=== PATIENT | male | born 1975 | race Caucasian/White ===

== ENCOUNTER 2020-02-19 15:58 | Outpatient (REF) | payer MEDICARE, MEDICAID, SELFPAY | END 2020-02-19 15:59 | disposition home or self-care (01) | LOC: HO.LAB 15:58 | PROVIDERS: PCP Physician Assistant Medical; Visit Provider Internal Medicine | DX: Z20.828 Contact with and (suspected) exposure to other viral communicable diseases (principal) | CPT/HCPCS: C9803; U0003 ==

== ENCOUNTER 2021-12-05 10:31 | Emergency (ER) | payer MEDICARE, MEDICAID, SELFPAY ==
[2021-12-05 10:36] VITALS: BP 99/58; PULSE 76; RESP 18; TEMP 36.4; O2SAT 100; BMI 36.1
--- OUTSIDE RECORDS SUMMARY | 2021-12-05 11:07 | XMS_ITS ---
:1975 Author Name Walt Curtis Care Team Providers Name Role Phone Walt Curtis Unavailable Unavailable PROBLEMS Type Condition ICD9-CM Code [id number] Code Onset Condition SNO MED Code Dates Status Problem Tinea unguium B35.1 Active 659715 005 ALLERGIES Substance Reaction Event Type Date Status Seasonale Unknown Drug Allergy Oct, Active ENCOUNTERS Encounter Location Date Diagnosis [address] Oct, Tin ea unguium B35.1 ; Ceferino De La Vega [place] Pain in right t oe(s) [address] M79.674 and Pain in left toe(s) M79. [address] July, Tin ea unguium B35.1 ; Ceferino De La Vega [place] Pain in right t oe(s) [address] M79.674 and Pain in left toe(s) M79. [address] July, [place] [id number] Apr, Tin ea unguium B35.1 ; Ceferino De La Vega [place] Pain in right t oe(s) [address] M79.674 and Pain in left toe(s) M79. [address] Jan, Tin ea unguium B35.1 ; Ceferino De La Vega [place] Pain in right t oe(s) [address] M79.674 and Pain in left toe(s) M79. [address] Oct, Tin ea unguium B35.1 ; Ceferino De [place] Vega [place] Pain in right t oe(s) [address] M79.674 and Pain in left toe(s) M79. [address] July, Tin ea unguium B35.1 ; Ceferino De La Vega [place] Pain in right t oe(s) [address] M79.674 and Pain in left toe(s) M79. [address] Apr, Tin ea unguium B35.1 ; Ceferino De La Vega [place] Pain in right t oe(s) [address] M79.674 ; Pain i n left toe(s) M79.675 ; Pain in left foot M79 .672 ; Pain in left ank le and joints of left f oot M25.572 and [place] ux valgus (acquired ), left foot M20.12 IMMUNIZATIONS Vaccine Route Administration Date Status COVID-19 Moderna Vaccine Unknown Jan 14, 2021 Adminis tered Influenza Unknown Nov 05, 2020 Administered SOCIAL HISTORY Qualifiers Date Never Smoker REASON FOR REFERRAL FUNCTIONAL STATUS PLAN OF CARE Activity Details Future Appointment Provider Name:Damon Patten , 2022-01-12 09:00:00 AM, [address] [place] [address] [place], [id number], Future/Pending Procedure [id number] NAIL, 6 [place] MOR E Future/Pending Procedure [id number] NAIL, 6 OR MOR E Future/Pending Procedure [id number] NAIL, 6 OR MOR E Future/Pending Procedure [id number] NAIL, 6 OR MOR E Future/Pending Procedure [id number] NAIL, 6 OR MOR E Future/Pending Procedure [id number] NAIL, 6 OR MOR E Future/Pending Procedure [id number] NAIL, 6 OR MOR E VITAL SIGNS Height 5 ft 9 in in 2021-10-13 Weight 230 lbs 2021-10-13 BMI 33.96 kg/m2 2021-10-13 Temperature 98.1 degrees Fahrenheit 2020-07-11 MEDICATIONS Medication Instructions Dosage Frequency Start End Duration Statu s Date Date Famotidine 20 Orally Once a 1 tablet at 24h 30 day(s ) Active MG day bedtime as needed [place] Orally Once a 1 tablet at 24h 30 day(s) Acti ve Carbonate ER day bedtime 300 MG CeleXA 20 MG Orally Once a 1 tablet 24h 30 day(s) Ac tive day TEGretol-XR Active Thiothixene 10 Orally Twice a 1 capsule 12h 30 day(s ) Active MG day Claritin 10 MG Orally Once a 1 tablet 24h 30 day(s) Active day Prinzide Active PROCEDURES Procedure Date Ordered Result Body Site DEBRIDE NAIL, 6 OR MORE Apr 22, 2020 DEBRIDE NAIL, 6 OR MORE July 11, 2020 DEBRIDE NAIL, 6 OR MORE Oct 14, 2020 DEBRIDE NAIL, 6 OR MORE Jan 13, 2021 DEBRIDE NAIL, 6 OR MORE Apr 14, 2021 DEBRIDE NAIL, 6 OR MORE July 28, 2021 DEBRIDE NAIL, 6 OR MORE Oct 13, 2021 RESULTS No Results REASON FOR VISIT Insurance Providers [facility] Member Patient Patient Patient Patient Patient Subscriber Subscriber Subscriber Group Insurance Plan Plan Plan Plan ID Relationship Address Phone Name Date of ID Name Date of No Type Insurance Insurance Insurance Coverage to Subscriber Address Phone Name Dates Medicare National [id number] Medicare self Quang 13 [id number] [facility] [address] [facility] [address] [place] [id number] MEDICAL (GENERAL) HISTORY Type Description Date Medical History High blood pressure Medical History Head injury at 9 years old Surgical History No know Surgical history
--- OUTSIDE RECORDS SUMMARY | 2021-12-05 11:08 | XMS_ITS | Encounter Summary ---
:1975 Author Care Team Providers Name Role Phone Walt Curtis PA-C Primary Care Provider [phone] [facility] Referring Provider [phone] Services [employer] Salesperson [phone] [place] [facility] Psychologist [phone] Reason for Visit fall Patient states durring the night last had fallen on floor in bedroom. First bumped into dresser than floor. R hip injured. Assessment and Plan 1. Pain in right hip joint most likely from fall however mild ordered ibuprofen to help with inflammat ion pt has several complaints that he cannot walk, has a broken hip or cannot move however was seen mutiple times during the visit walking around normally with no complaints no need for x-rays at this time as pt is only having mild pain, ROM is intact and pain was improving with tylenol. will consider only if there are no improvements. 2. Low back pain lower back most likely from fall howeve r mild ordered ibuprofen to help with inflammat ion pt has several complaints that he cannot walk or move however was seen mutiple times during the visit walking around normally with no complaints no need for x-rays at this time as pt is only having mild pain, ROM is intact and pain was improving with tylenol. will consider only if there are no improvements. ? low back pain: exercises ? ibuprofen 200 mg tablet 3. Recurrent falls hx of falls pt was [place] help with fall prevention however pt did not go. As per caregiver he went twice and then stopped after discussion with patient, agreed to try physical therapy again counselled on safe environment to help t he preventions of falls ? preventing falls: care instructions ? fall prevention education ? physical therapist referral - pt has a history of frequent falls also has balance problems hx of spastic hemiplagia Discussion Note: None recorded. Plan of Care Reminders Provider Appointments Follow up 30Min 12/09/2021 Walt Curtis PA-C 2:30PM ? Awv30 02/22/2022 Walt Curtis PA-C 11:00AM Lab None recorded. ? ? Referral Physical Therapist 10/22/2021 Falls Preve ntion Referral Initiative - [facility] Procedures None recorded. ? ? Surgeries None recorded. ? ? Imaging None recorded. ? ? Medications Name Start Date ? ? amoxicillin 500 mg capsule ? carbamazepine 200 mg tablet ? TAKE 1 TABLET BY MOUTH EVERY MORNING, 2 TABS AT 4PM, AND 2 TABLETS AT NIGHT citalopram 20 mg tablet ? Take 1 tablet every day by oral route for 90 days. famotidine 20 mg tablet ? TAKE 1 TABLET BY MOUTH TWICE DAILY NEEDED ibuprofen 200 mg tablet ? Take 1 tablet every 6 hours by oral route as needed f or 30 days. lisinopril 20 mg tablet ? TAKE 1/2 TABLET BY MOUTH EVERY DAY lithium carbonate 300 mg capsule ? Take 1 capsule twice a day by oral route for 90 days. loratadine 10 mg tablet ? TAKE 1 TABLET BY MOUTH EVERY DAY oxybutynin chloride 5 mg tablet ? thiothixene 10 mg capsule ? Take 1 capsule every day by oral route for 90 days. Tylenol 325 mg tablet ? Take 2 tablets every 6 hours by oral route as needed. Medications Administered None recorded. Vitals Height Weight BMI Blood Pressure 5 ft 9.25 in 241 lbs 16 oz 35.5 kg/m2 113/74 mm[Hg] Results Lab Results None recorded. Allergies Code Code System Name Reaction Severity Onset NKDA ? ? ? Problems Name Status Onset Date Source ? Obesity Active 01/15/2019 ? Onychomycosis of Toenails Active 02/18/2020 ? Major Depressive Disorder Active 02/18/2020 ? Spastic Hemiplegia Active 02/18/2020 ? Nocturnal Enuresis Active 02/19/2021 ? Hyperlipidemia Active ? ? Hypo-osmolality and or Hyponatremia Active ? ? Intellectual Functioning Disability Active ? ? Spastic Hemiplegia Active ? ? Essential Hypertension Active ? ? Gastroesophageal Reflux Disease Active ? ? Seizure Active ? ? Epistaxis Active ? ? Intracranial Injury Active ? ? Traumatic Brain Injury Active ? ? 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 ? Motion Sickness Active ? ? Procedures Date Name Performed by ? 01/05/2019 Esophagogastroduodenoscopy Information n ot available Vaccine List Vaccine Type COVID-19, mRNA, LNP-S, PF, 100 mcg/0.5 m L dose (Moderna) 06/17/2020 07/15/2020 01/14/2021 influenza, injectable, quadrivalent, pre servative free 11/22/2017?0.5 ML 12/13/2018?0.5 ML 12/18/2019?0.5 ML 01/20/2021 influenza, seasonal, injectable 02/06/2007 02/12/2008 02/19/2010 02/22/2011 12/10/2013 12/18/2014 12/05/2016?0.5 mL 01/21/2021 influenza, seasonal, injectable, preserv ative free 12/18/2014 01/22/2016 12/14/2016 influenza, seasonal, intradermal, preser vative free 02/21/2012 12/04/2012 Td (adult), adsorbed 08/19/2000 Tdap 02/19/2010 Social History Tobacco Smoking Status Never Smoker What type of diet are you REGULAR following? Are you able to walk? YESWOREST How many children do you have? 0 Are you able to care for Y yourself? Are you currently employed? N Have you served in the N [employer]? How much tobacco do you chew? none What was the date of your most 02/19/2021 recent tobacco screening? Do you use sunscreen routinely? Y Do you have an advanced N directive? Do you or have you ever used Never used electronic e-cigarettes or vape? cigarettes Do you use any illicit or N recreational drugs? Is blood transfusion acceptable Y in an emergency? What is your exercise level? Occasional Notes: [place] How many years have you smoked 0 tobacco? How often do you need to have Always someone help you when you read instructions, pamphlets, or other written material from your doctor or pharmacy? What is your level of alcohol None consumption? Live alone or with others? with others Notes: Home care provider (Xiomy Lawrence) and her (Nithin kwon Howard) Which illicit or recreational none drugs have you used? Are you passively exposed to N smoke? Do you or have you ever used N any other forms of tobacco or nicotine? What is your level of caffeine Occasional Notes: 1 cup of coffee consumption? daily Do you take precautions to Notes: does not drive prevent distracted driving? Smoke alarm in home Y Seat belts used routinely Y At what age did you start 0 smoking tobacco? What is your occupation? disabled Family History Relation Problem Onset Age of Age Notes Mother Well adult (No Information) N/A (No Notes) Father Well adult (No Information) N/A (No Notes) Sister Diabetes mellitus (No Information) N/A (No No sabi) Functional Status Unknown. Past Encounters 10/22/2021 Pain in Right Hip Joint; Low Back Pain; Recurrent Falls Christi Sinha MD: [id number] [address], Ph. History of Present Illness ? Back Pain Reported By: Patient HPI: Location: pain is not radiat ing. Quality: ; aching. Severity: same. Duration: intermittent. Onse t/Timing: first episode, 3days ago. Context: trauma. Alleviating Factors: rest. Aggravating Factors: movement/positioning. Associ ated Symptoms: no fever, no weak limbs, no numbness of the legs/feet, n o tingling, no incontinence, no shortness of breath ? Hip(s) Reported By: Patient HPI: Location: right. Quality: ac cliff. Severity: mild. Duration: 3 days. Timing: occasional. Context: fall. Alleviating Factors: rest, OTC medication. Aggravating Fact ors: standing, walking. Associated Symptoms: no weakness, no numbness, no tingling, no swelling, no redness, no warmth, no ecchymosis, no ca tching/locking, no popping/clicking, no buckling, no grinding, no in stability, no radiation down leg, no drainage, no fever, no chill s, no weight loss, no change in bowel/bladder habits. Previo us Surgery: none. Prior Imaging: none. Previous Injections: none. P revious PT: did not help. Work Related: no. Working: no Note: <div>Pt is a poor historian. Hx obtained mostly by patient because care- taker did not witnessthe fall.</div><div>
</div><div>Quang Martinez is a 46 year old M who presented to the clinic after a fall. The fall occurred on Friday 10/20. As per patient after the fall he had been having right sided hip pain and lower back pain. Pt was in his bedroom coming back fromthe bathroom when he tripped and fell over his feet. Pt stated he fell on his right side. Denies yazan ing his head or LOC. The fall was not witnessed. Pt did not tell his caregivers what had happened until the next day and did not got to his day program due to the pain. Pt caregiver reports no trouble walking. Pt was given two tablets of tylenol on Tuesday which helped with the pain.</div><div>
</div><div>Last documented fall was in 07/2017 sent to PT for fall prevention for which patient did not complete.</div> Review of Systems ? Comprehensive General Adult ROS Reported By: Patient Constitutional: Constitutional: no fever, no night sweats, no significant weight gain, no significant weight loss, no exercise intolerance Eyes: Eyes: no vision change ENMT: Nose: no nose/sinus problems . Mouth/Throat: no teeth problems Cardiovascular: Cardiovascular: no chest layne n, no shortness of breath when walking, no palpitations, no edema Respiratory: Respiratory: no cough, no wh eezing, no shortness of breath Gastrointestinal: Gastrointestinal: no abdomin al pain, normal appetite Musculoskeletal: Musculoskeletal: muscle ache s, arthralgias/joint pain, back pain Integumentary: Skin: no rashes, no lacerati on Neurologic: Neurologic: no loss of consc iousness, no numbness, no dizziness, no headaches Physical Exam ? General Adult Exam, Geriatri cs Exam Reported By: Patient Telecommunication Systems Designer: Telecommunication Systems Designer: present Constitutional: General Appearance: obese; R UE contracted at baseline. Level of Distress: NAD. Ambulation: a mbulating normally Psychiatric: Insight: poor insight. Menta l Status: active and alert Head: Head: atraumatic Eyes: Lids and Conjunctivae: no di scharge. Pupils: PERRLA. Corneas: grossly intact. EOM: EOMI. L ens: clear. Sclerae: non-icteric Lungs: Respiratory effort: no dyspn ea. Auscultation: breath sounds normal, good air movement, no wheezi ng, no rales/crackles, no rhonchi Cardiovascular: Apical Impulse: not displace d. Heart Auscultation: RRR, normal S1, normal S2, no murmurs, no ru bs, no gallops Abdomen: Bowel Sounds: normal Musculoskeletal:: Extremities: no edema Notes: <div>Back exam- exam was galeana ited because pt stated he was in pain</div><div>Normal appear ance
Tenderness on the lower spine at level L4
ROM-Forward F lexion 90, Extension 30, lateral flexion right 30 left 30, la teral rotation right 30 left 30
Motor- Hip flexion 5/5 , abduction 5/5, adduction 5/5, knee extension 5/5, knee flexion 5/5, ankle dorsiflexion 5/5, plantarflexion 5/5</div><div >
</div><div>Right Hip exam
Gait: normal
Tenderness: none<b r>Range of Motion:not assessed because patient did not have good ba bhumi and complained of pain
Muscle Strength
Abduction:5/5
Adduction:5/5
Flexion:5/5
Specia l tests: Log Roll test {nega tive}, Pendulum test {NEGATIVE}</div><div>Neurova scular: intact</div>
--- OUTSIDE RECORDS SUMMARY | 2021-12-05 11:08 | XMS_ITS ---
:1975 Author Care Team Providers Name Role Phone NATALIIA ASHBY FOR TRAUMATIC BRAIN INJURY Referring Provider [phone] SERVICES TYRON CARTER Back [employer] [phone] WALT NASCIMENTO PA-C Primary Care Provider [phone] [facility] Psychologist [phone] Allergies Code Code System Name Reaction Severity Status Onset No Known Allergies ? ? Deactivated 03/20/2013 NKDA ? Medications Name Status Start Date Stop Date ? ? acetaminophen 300 mg-codeine 30 mg tablet Completed ? 02/19/2021 amoxicillin 500 mg capsule Active ? Not a vailable aspirin 325 mg tablet,delayed release Completed ? 01/11/2018 Take 1 tablet every day by oral route as needed. atenolol 100 mg tablet Completed 02/17/2009 9 QD Botox 100 unit injection Completed ? 018 carbamazepine 200 mg tabs Completed ? 2019 carbamazepine 200 mg tablet Active ? Not available TAKE 1 TABLET BY MOUTH EVERY MORNING, 2 TABS AT 4PM, AND 2 TABL ETS AT NIGHT citalopram 10 mg tablet Completed ? 02/18/20 20 citalopram 20 mg tablet Active ? Not avai lable Take 1 tablet every day by oral route for 90 days. citalopram hydrobromide 10 mg tabs Completed ? 02/18/2020 citalopram hydrobromide 20 mg tabs Completed ? 02/18/2020 famotidine 20 mg tablet Active ? Not avai lable TAKE 1 TABLET BY MOUTH TWICE DAILY NEEDED Gentak 0.3 % (3 mg/gram) eye ointment Completed ? 07/11/2017 APPLY A SMALL AMOUNT (1/2 INCH) TO THE LOWER LID OF THE AFFECTED EYE(S) BY OPHTHALMIC ROUTE 2 TIMES PER DAY ibuprofen 200 mg tablet Active ? Not avai lable Take 1 tablet every 6 hours by oral route as needed for 30 days . lisinopril 20 mg tabs Completed ? 02/18/2020 lisinopril 20 mg tablet Active ? Not avai lable TAKE 1/2 TABLET BY MOUTH EVERY DAY lithium carbonate 300 mg caps Completed ? lithium carbonate 150 mg capsule Completed ? 09/13/2018 lithium carbonate 300 mg capsule Active ? Not available Take 1 capsule twice a day by oral route for 90 days. loratadine 10 mg tablet Active ? Not avai lable TAKE 1 TABLET BY MOUTH EVERY DAY lorazepam 1 mg tablet Completed ? 01/15/2019 Take 1 tablet as needed by oral route as needed for 5 days. omeprazole 20 mg cpdr Completed ? 02/18/2020 omeprazole 20 mg capsule,delayed release Completed ? 10/22/2021 oxybutynin chloride 5 mg tablet Active ? Not available polymyxin B sulfate 10,000 unit-trimethoprim 1 Completed ? 05/16/2018 mg/mL eye drops ranitidine 150 mg tablet Completed ? 020 ranitidine hydrochloride 150 mg tabs Completed ? 02/18/2020 Tamiflu 75 mg capsule Completed ? 01/04/2017 Take 1 capsule twice a day by oral route for 5 days. Tegretol XR 400 mg tablet,extended release Completed ? 02/18/2020 Take 1 tablet every 12 hours by oral route in the evening. thiothixene 10 mg caps Completed ? 0 thiothixene 5 mg caps Completed ? 02/18/2020 thiothixene 10 mg capsule Active ? Not av ailable Take 1 capsule every day by oral route for 90 days. thiothixene 5 mg capsule Completed ? 020 Transderm-Scop 1 mg over 3 days transdermal Completed ? 01/15/2019 patch Tylenol 325 mg tablet Active ? Not availa ble Take 2 tablets every 6 hours by oral route as needed. Problems Name Status Onset Date Source ? Administration of Bacterial and Viral Vaccine Unknown ? Administration of Bacterial and Viral Vaccine Unknown ? Onychomycosis Due to Dermatophyte Unknown 02/21/2012 ? Onychomycosis Due to Dermatophyte Unknown 02/21/2012 ? Joint Pain in Ankle and Foot Unknown 02/21/2012 ? Joint Pain in Ankle and Foot Unknown 02/21/2012 ? Closed Fracture of Ankle Unknown 02/21/2012 ? Closed Fracture of Ankle Unknown 02/21/2012 ? Closed Fracture of Foot Unknown 02/21/2012 ? Closed Fracture of Foot Unknown 02/21/2012 ? Traumatic or Non-traumatic Injury Unknown 02/21/2012 ? Traumatic or Non-traumatic Injury Unknown 02/21/2012 ? Influenza Vaccine Needed Unknown 02/21/2012 ? Influenza Vaccine Needed Unknown 02/21/2012 ? Follow-up Encounter Unknown 02/21/2012 ? Follow-up Encounter Unknown 02/21/2012 ? Sprain of Spinal Ligament Unknown 03/20/2013 ? Sprain of Spinal Ligament Unknown 03/20/2013 ? Patient Status Finding Unknown 03/20/2013 ? Patient Status Finding Unknown 03/20/2013 ? Obesity Unknown 03/27/2013 ? Obesity Unknown 03/27/2013 ? Adult Health Examination Unknown 03/27/2013 ? Adult Health Examination Unknown 03/27/2013 ? Obesity Active 01/15/2019 ? Onychomycosis of Toenails Active 02/18/2020 ? Major Depressive Disorder Active 02/18/2020 ? Spastic Hemiplegia Active 02/18/2020 ? Nocturnal Enuresis Active 02/19/2021 ? Hyperlipidemia Active ? ? Hypo-osmolality and or Hyponatremia Active ? ? Body Mass Index 30+ - Obesity Unknown ? ? Intellectual Functioning Disability Active ? ? Spastic Hemiplegia Active ? ? Essential Hypertension Active ? ? Allergic Rhinitis Unknown ? ? Gastroesophageal Reflux Disease Active ? ? Seizure Active ? ? Epistaxis Active ? ? Electrocardiogram Abnormal Unknown ? ? Intracranial Injury Active ? ? Traumatic Brain Injury Active ? ? 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 ? Motion Sickness Active ? ? Laboratory Procedure Performed Unknown ? ? Knee Pain Unknown ? ? Procedures Date Name Performed by ? 01/05/2019 Esophagogastroduodenoscopy Information n ot available Results Lab Results Date Name Specimen Result Interpretation Description Value Range Status Address ? 05/26/2021 Cbc ? Wbc 7.1 (4.0-11.0) [facility] K/mm3 K/mm3 Reference Laboratori es: [address], [place] ? ? Low Rbc 4.48 (4.70-6.10) [facility] M/mm3 M/mm3 Reference Laboratori es: [address], [place] ? ? ? Hgb 13.8 (13.7-17.1) [facility] gm/dL gm/dL Reference Laboratori es: [address], [place] ? ? ? Hct 41.9 % (40.5-50.0) [facility] % Reference Laboratori es: [address], [place] ? ? ? Mcv 93.5 fL (80.0-94.0) [facility] fL Reference Laboratori es: [address], [place] ? ? ? Mch 30.8 pg (27.0-34.0) Final [facility] pg Reference Laboratori es: [address], [place] ? ? Low Mchc 32.9 (33.0-37.0) [facility] g/dL g/dL Reference Laboratori es: [address], [place] ? ? ? Plt 253 (150-460) [facility] K/mm3 K/mm3 Reference Laboratori es: [address], [place] ? ? ? RDW-SD 40.7 fL (<47.0) fL Final [facility] Reference Laboratori es: [address], [place] ? ? Low Mpv 9.3 fL (9.4-12.4) Final [facility] fL Reference Laboratori es: [address], [place] ? ? ? Automated 0.0 ? [facility] NRBC #/100 Reference WBC's Laboratori es: [address], [place] ? ? ? Abs. NRBC 0.0 ? [facility] K/mm3 Reference Laboratori es: [address], [place] 05/26/2021 HbA1C ? Hemoglobin 5.1 % (4.0-5.6) % Fin al [facility] (Hemoglobin a1C Refer ence a1C), Blood Labor atories: [address], [place] 05/26/2021 CMP, Serum ? Glucose 96 (70-99) [facility] or Plasma mg/dL mg/dL Referen ce Laboratori es: [address], [place] ? ? ? Bun 18 (6-20) Final [facility] mg/dL mg/dL Reference Laboratori es: [address], [place] ? ? High Creatinine 1.4 (0.7-1.2) [facility] mg/dL mg/dL Reference Laboratori es: [address], [place] ? ? ? Sodium 134 (133-145) [facility] mmol/L mmol/L Reference Laboratori es: [address], [place] ? ? ? Potassium 5.0 (3.6-5.2) [facility] mmol/L mmol/L Reference Laboratori es: [address], [place] ? ? ? Chloride 98 (98-107) [facility] mmol/L mmol/L Reference Laboratori es: [address], [place] ? ? ? Bicarbonate 26 (22-29) [facility] mmol/L mmol/L Reference Laboratori es: [address], [place] ? ? ? Anion Gap 10 (4-17) [facility] Reference [facility]: [address], [place] ? ? High Albumin 5.0 (3.4-4.8) [facility] gm/dL gm/dL Reference Laboratori es: [address], [place] ? ? ? Calcium 10.1 (8.6-10.5) Final [facility] mg/dL mg/dL Reference Laboratori es: [address], [place] ? ? ? Bilirubin,to 0.3 (0-1.2) [facility] [place] mg/dL mg/dL Reference Laboratori es: [address], [place] ? ? ? Total 6.9 (6.2-8.2) [facility] Protein gm/dL gm/dL Reference Laboratori es: [address], [place] ? ? ? Ag Ratio 2.6 ? Final [facility] Reference Laborator[facility]: [address], [place] ? ? ? Ast 21 U/L (0-40) U/L [facility] Reference Laborator[facility]: [address], [place] ? ? ? Alk Phos 85 U/L (40-129) [facility] U/L Reference Laboratori es: [address], [place] ? ? ? Alt 23 U/L (0-41) U/L [facility] Reference Laborator[facility]: [address], [place] ? ? ? Estimated 61 ? Final [facility] GFR mL/min/ Reference Creatinine 1.73 M2 Labor atories: [address], [place] 05/26/2021 Lipid Panel, High Cholesterol, 259 (<200) Final [facility] Serum Total mg/dL mg/dL Reference Laboratori es: [address], [place] ? ? High Triglyceride 209 (<150) Final [facility] mg/dL mg/dL Reference Laboratori es: [address], [place] ? ? ? HDL Chol 47 (>39) mg/dL [facility] mg/dL Reference Laboratori es: [address], [place] ? ? High LDL 170 (0-130) Final [facility] Cholesterol, mg/dL mg/dL Refe rence Calculated Labora tories: [address], [place] ? ? High Non HDL 212 (<160) Final [facility] Cholesterol mg/dL mg/dL Refer ence (Calc) Laboratori es: [address], [place] 05/26/2021 Hepatitis C Normal Anti-hepatit ? (neg) F inal [facility] Virus Ab, is C Referen ce Serum Laboratori es: [address], [place] 08/20/2020 BMP, Serum High Glucose 117 (70-99) Final [facility] or Plasma mg/dL mg/dL Referen ce Laboratori es: [address], [place] ? ? ? Bun 17 (6-20) Final [facility] mg/dL mg/dL Reference Laboratori es: [address], [place] ? ? ? Creatinine 1.2 (0.7-1.2) [facility] mg/dL mg/dL Reference Laboratori es: [address], [place] ? ? ? Sodium 137 (133-145) Final [facility] mmol/L mmol/L Reference Laboratori es: [address], [place] ? ? ? Potassium 4.5 (3.6-5.2) Final [facility] mmol/L mmol/L Reference Laboratori es: [address], [place] ? ? ? Chloride 101 (98-107) Final [facility] mmol/L mmol/L Reference Laboratori es: [address], [place] ? ? ? Bicarbonate 24 (22-29) Final [facility] mmol/L mmol/L Reference Laboratori es: [address], [place] ? ? ? Anion Gap 12 (4-17) Final [facility] Reference Laboratori [facility]: [address], [place] ? ? ? Calcium 10.0 (8.6-10.5) Final [facility] mg/dL mg/dL Reference Laboratori es: [address], [place] ? ? ? Est GFR Non 70 ? Final [facility] mL/min/ Referenc e [place] 1.73 M2 Laborat ories: [address], [place] ? ? ? Est GFR 81 ? Final [facility] mL/min/ Referenc e [place] 1.73 M2 Laborat ories: [address], [place] 05/12/2020 CBC W/ Auto ? Wbc 7.6 (4.0-11.0) Cara l [facility] Diff K/mm3 K/mm3 Reference Laboratori es: [address], [place] ? ? ? Rbc 4.82 (4.70-6.10) [facility] M/mm3 M/mm3 Reference Laboratori es: [address], [place] ? ? ? Hgb 14.6 (13.7-17.1) [facility] gm/dL gm/dL Reference Laboratori es: [address], [place] ? ? ? Hct 44.3 % (40.5-50.0) [facility] % Reference Laboratori es: [address], [place] ? ? ? Mcv 91.9 fL (80.0-94.0) Final [place] fL Reference Laboratori es: [address], [place] ? ? ? Mch 30.3 pg (27.0-34.0) Final [place] pg Reference Laboratori es: [address], [place] ? ? ? Mchc 33.0 (33.0-37.0) [facility] g/dL g/dL Reference Laboratori es: [address], [place] ? ? ? Plt 230 (150-460) Final [facility] K/mm3 K/mm3 Reference Laboratori es: [address], [place] ? ? ? RDW-SD 40.0 fL (<47.0) fL Final [place] Reference Laboratori es: [address], [place] ? ? ? Mpv 9.6 fL (9.4-12.4) Final [facility] fL Reference Laboratori es: [address], [place] ? ? ? Automated 0.0 ? Final [facility] NRBC #/100 Reference WBC's Laboratori es: [address], [place] ? ? ? Abs. NRBC 0.0 ? Final [facility] K/mm3 Reference Laboratori es: [address], [place] 05/12/2020 CMP, Serum ? Glucose 96 (70-99) Final [facility] or Plasma mg/dL mg/dL Referen ce Laboratori es: [address], [place] ? ? ? Bun 20 (6-20) Final [facility] mg/dL mg/dL Reference Laboratori es: [address], [place] ? ? High Creatinine 1.4 (0.7-1.2) [facility] mg/dL mg/dL Reference Laboratori es: [address], [place] ? ? ? Sodium 137 (133-145) Final [facility] mmol/L mmol/L Reference Laboratori es: [address], [place] ? ? ? Potassium 5.2 (3.6-5.2) Final [facility] mmol/L mmol/L Reference Laboratori es: [address], [place] ? ? ? Chloride 101 (98-107) Final [facility] mmol/L mmol/L Reference Laboratori es: [address], [place] ? ? ? Bicarbonate 27 (22-29) Final [facility] mmol/L mmol/L Reference Laboratori es: [address], [place] ? ? ? Anion Gap 9 (4-17) Final [facility] Reference Laboratori [facility]: [address], [place] ? ? High Albumin 5.0 (3.4-4.8) Final [facility] gm/dL gm/dL Reference Laboratori es: [address], [place] ? ? ? Calcium 10.4 (8.6-10.5) Final [facility] mg/dL mg/dL Reference Laboratori es: [address], [place] ? ? ? Bilirubin,to 0.3 (0-1.2) Final [facility] [place] mg/dL mg/dL Reference Laboratori es: [address], [place] ? ? ? Total 7.1 (6.2-8.2) Final [facility] Protein gm/dL gm/dL Reference Laboratori es: [address], [place] ? ? ? Ag Ratio 2.4 ? Final [facility] Reference Laboratori [facility]: [address], [place] ? ? ? Ast 18 U/L (0-40) U/L [facility] Reference Laboratori [facility]: [address], [place] ? ? ? Alk Phos 96 U/L (40-129) Final [facility] U/L Reference Laboratori es: [address], [place] ? ? ? Alt 21 U/L (0-41) U/L Final [facility] Reference Laboratori es: [address], [place] ? ? ? Est GFR Non 61 ? Final [facility] mL/min/ Referenc e [place] 1.73 M2 Laborat ories: [address], [place] ? ? ? Est GFR 71 ? Final [facility] mL/min/ Referenc e [place] 1.73 M2 Laborat ories: [address], [place] 05/12/2020 Lipid Panel, High Cholesterol, 247 (<200) Final [facility] Serum Total mg/dL mg/dL Reference Laboratori es: [address], [place] ? ? High Triglyceride 184 (<150) Final [facility] mg/dL mg/dL Reference Laboratori es: [address], [place] ? ? ? HDL Chol 50 (>39) mg/dL [facility] mg/dL Reference Laboratori es: [address], [place] ? ? High LDL 160 (0-130) Final [facility] Cholesterol, mg/dL mg/dL Refe rence Calculated Labora tories: [address], [place] ? ? High Non HDL 197 (<160) Final [facility] Cholesterol mg/dL mg/dL Refer ence (Calc) Laboratori es: [address], [place] 05/12/2020 Vitamin D, ? 25OH Vitamin 23.8 (20-50) F inal [facility] 25-Hydroxy, D NG/mL NG/mL Refer ence Total, Serum Labo ratories: [address], [place] 02/18/2020 Cerumen ? No ? ? ? In-Of fice Removal observation Orde r: (PROC) recorded. Interna l Use Only DO No t Attach Compendium DO Not Attach Compendium , Do Not Delete/dina ge 05/08/2019 HbA1C ? Hemoglobin 4.9 % (4.0-5.6) % Fin al [facility] (Hemoglobin a1C Refer ence a1C), Blood Labor atories: [address], [place] 05/08/2019 CMP, Serum ? Glucose 89 (70-99) Final [facility] or Plasma mg/dL mg/dL Referen ce Laboratori es: [address], [place] ? ? ? Bun 13 (6-20) Final [facility] mg/dL mg/dL Reference Laboratori es: [address], [place] ? ? ? Creatinine 1.2 (0.7-1.2) Final [facility] mg/dL mg/dL Reference Laboratori es: [address], [place] ? ? ? Sodium 138 (133-145) Final [facility] mmol/L mmol/L Reference Laboratori es: [address], [place] ? ? ? Potassium 4.5 (3.6-5.2) Final [facility] mmol/L mmol/L Reference Laboratori es: [address], [place] ? ? ? Chloride 102 (98-107) Final [facility] mmol/L mmol/L Reference Laboratori es: [address], [place] ? ? ? Bicarbonate 26 (22-29) Final [facility] mmol/L mmol/L Reference Laboratori es: [address], [place] ? ? ? Anion Gap 10 (4-17) Final [facility] Reference Laboratori es: [address], [place] ? ? ? Albumin 4.8 (3.4-4.8) Final [facility] gm/dL gm/dL Reference Laboratori es: [address], [place] ? ? ? Calcium 10.2 (8.6-10.5) Final [facility] [facility] mg/dL mg/dL Reference Laboratori es: [address], [place] ? ? ? Bilirubin,to 0.3 (0-1.2) Final [facility] [place] mg/dL mg/dL Reference Laboratori es: [address], [place] ? ? ? Total 6.9 (6.2-8.2) Final [facility] Protein gm/dL gm/dL Reference Laboratori es: [address], [place] ? ? ? Ag Ratio 2.3 ? Final [facility] Reference Laboratori [facility]: [address], [place] ? ? ? Ast 20 U/L (0-38) U/L Final [facility] Reference Laboratori es: [address], [place] ? ? ? Alk Phos 91 U/L (40-129) Final [facility] U/L Reference Laboratori es: [address], [place] ? ? ? Alt 24 U/L (0-41) U/L Final [facility] Reference Laboratori es: [address], [place] ? ? ? Est GFR Non 74 ? Final [facility] mL/min/ Referenc e [place] 1.73 M2 Laborat ories: [address], [place] ? ? ? Est GFR 86 ? Final [facility] mL/min/ Referenc e [place] 1.73 M2 Laborat ories: [address], [place] 05/08/2019 Lipid Panel, High Cholesterol, 221 (<200) Final [facility] Serum Total mg/dL mg/dL Reference Laboratori es: [address], [place] ? ? High Triglyceride 184 (<150) Final [facility] mg/dL mg/dL Reference Laboratori es: [address], [place] ? ? ? HDL Chol 50 (>39) mg/dL [facility] mg/dL Reference Laboratori es: [address], [place] ? ? High LDL 134 (0-130) Final [facility] Cholesterol, mg/dL mg/dL Refe rence Calculated Labora tories: [address], [place] ? ? High Non HDL 171 (<160) Final [facility] Cholesterol mg/dL mg/dL Refer ence (Calc) Laboratori es: [address], [place] 07/26/2018 BMP, Serum ? Glucose 98 (70-99) Final [facility] or Plasma mg/dL mg/dL Referen ce Laboratori es: [address], [place] ? ? ? Bun 16 (6-20) Final [facility] mg/dL mg/dL Reference Laboratori es: [address], [place] ? ? ? Creatinine 1.1 (0.7-1.2) Final [facility] mg/dL mg/dL Reference Laboratori es: [address], [place] ? ? ? Sodium 141 (133-145) Final [facility] mmol/L mmol/L Reference Laboratori es: [address], [place] ? ? ? Potassium 4.9 (3.6-5.2) Final [facility] mmol/L mmol/L Reference Laboratori es: [address], [place] ? ? ? Chloride 104 (98-107) Final [facility] mmol/L mmol/L Reference Laboratori es: [address], [place] ? ? ? Bicarbonate 27 (22-29) Final [facility] mmol/L mmol/L Reference Laboratori es: [address], [place] ? ? ? Anion Gap 10 (4-17) Final [facility] Reference Laboratori es: [address], [place] ? ? ? Calcium 10.4 (8.6-10.5) Final [facility] mg/dL mg/dL Reference Laboratori es: [address], [place] ? ? ? Est GFR Non 82 ? Final [facility] mL/min/ Referenc e [place] 1.73 M2 Laborat ories: [address], [place] ? ? ? Est GFR 95 ? Final [facility] mL/min/ Referenc e [place] 1.73 M2 Laborat ories: [address], [place] 07/26/2018 HbA1C ? Hemoglobin 4.9 % (4-6) % Final [facility] (Hemoglobin a1C Refer ence a1C), Blood Labor atories: [address], [place] 01/11/2018 CMP, Serum High Glucose 165 (70-99) Final [facility] or Plasma mg/dL mg/dL Referen ce Laboratori es: [address], [place] ? ? ? Bun 14 (6-20) Final [facility] mg/dL mg/dL Reference Laboratori es: [address], [place] ? ? ? Creatinine 1.0 (0.7-1.2) Final [facility] mg/dL mg/dL Reference Laboratori es: [address], [place] ? ? ? Sodium 134 (133-145) Final [facility] mmol/L mmol/L Reference Laboratori es: [address], [place] ? ? ? Potassium 4.2 (3.6-5.2) Final [facility] mmol/L mmol/L Reference Laboratori es: [address], [place] ? ? Low Chloride 97 (98-107) Final [facility] mmol/L mmol/L Reference Laboratori es: [address], [place] ? ? ? Bicarbonate 22 (22-29) Final [facility] mmol/L mmol/L Reference Laboratori es: [address], [place] ? ? ? Anion Gap 15 (4-17) Final [facility] Reference Laboratori es: [address], [place] ? ? ? Albumin 4.6 (3.4-4.8) Final [facility] gm/dL gm/dL Reference Laboratori es: [address], [place] ? ? ? Calcium 9.7 (8.6-10.5) Final [facility] mg/dL mg/dL Reference Laboratori es: [address], [place] ? ? ? Bilirubin,to 0.2 (0-1.2) Final [facility] [place] mg/dL mg/dL Reference Laboratori es: [address], [place] ? ? ? Total 6.7 (6.2-8.2) Final [facility] Protein gm/dL gm/dL Reference Laboratori es: [address], [place] ? ? ? Ag Ratio 2.2 ? Final [facility] Reference Laboratori es: [address], [place] ? ? ? Ast 17 U/L (0-38) U/L Final [facility] Reference Laboratori es: [address], [place] ? ? ? Alk Phos 98 U/L (40-129) Final [facility] U/L Reference Laboratori es: [address], [place] ? ? ? Alt 21 U/L (0-41) U/L Final [facility] Reference Laboratori es: [address], [place] ? ? ? Est GFR Non 93 ? Final [facility] mL/min/ Referenc e [place] 1.73 M2 Laborat ories: [address], [place] ? ? ? Est GFR 108 ? Final [facility] mL/min/ Referenc e [place] 1.73 M2 Laborat ories: [address], [place] 12/26/2017 Vitamin D, Low 25OH Vitamin 16.9 (20-50) F inal [facility] 25-Hydroxy, D NG/mL NG/mL Refer ence Total, Serum Labo ratories: [address], [place] 04/27/2017 BMP, Serum ? Glucose 89 (70-99) Final [facility] or Plasma mg/dL mg/dL Referen ce Laboratori es: [address], [place] ? ? ? Bun 15 (6-20) Final [facility] mg/dL mg/dL Reference Laboratori es: [address], [place] ? ? ? Creatinine 1.1 (0.7-1.2) Final [facility] mg/dL mg/dL Reference Laboratori es: [address], [place] ? ? ? Sodium 142 (133-145) Final [facility] mmol/L mmol/L Reference Laboratori es: [address], [place] ? ? ? Potassium 4.7 (3.6-5.2) Final [facility] mmol/L mmol/L Reference Laboratori es: [address], [place] ? ? ? Chloride 103 (98-107) Final [facility] mmol/L mmol/L Reference Laboratori es: [address], [place] ? ? ? Bicarbonate 25 (22-29) Final [facility] mmol/L mmol/L Reference Laboratori es: [address], [place] ? ? ? Anion Gap 14 (4-17) Final [facility] Reference Laboratori es: [address], [place] ? ? ? Calcium 10.3 (8.6-10.5) Final [facility] mg/dL mg/dL Reference Laboratori es: [address], [place] ? ? ? Est GFR Non 84 ? Final [facility] mL/min/ Referenc e [place] 1.73 M2 Laborat ories: [address], [place] ? ? ? Est GFR 97 ? Final [facility] mL/min/ Referenc e [place] 1.73 M2 Laborat ories: [address], [place] 04/27/2017 ALT (Alanine ? Alt 24 U/L (0-41) U/L Fin al [facility] Aminotransfe Refe michael lozano), Serum Labo ratories: or Plasma [address], [place] 04/27/2017 AST/SGOT ? Ast 19 U/L (0-38) U/L Final [facility] (Aspartate Refere nce Aminotransfe Labo ratories: [facility]), Serum [address], [place] 04/27/2017 Lipid Panel, High Cholesterol, 205 (<200) Final [facility] Serum Total mg/dL mg/dL Reference Laboratori es: [address], [place] ? ? High Triglyceride 180 (<150) Final [facility] mg/dL mg/dL Reference Laboratori es: [address], [place] ? ? ? HDL Chol 48 (>39) mg/dL [facility] mg/dL Reference Laboratori es: [address], [place] ? ? ? LDL 121 (0-130) Final [facility] Cholesterol, mg/dL mg/dL Refe rence Calculated Labora tories: [address], [place] ? ? ? Non HDL 157 (<160) Final [facility] Cholesterol mg/dL mg/dL Refer ence (Calc) Laboratori es: [address], [place] 04/27/2017 CBC W/ Auto ? Wbc 7.0 (4.0-11.0) Cara l [facility] Diff K/mm3 K/mm3 Reference Laboratori es: [address], [place] ? ? Low Rbc 4.62 (4.70-6.10) [facility] M/mm3 M/mm3 Reference Laboratori es: [address], [place] ? ? ? Hgb 14.5 (14.0-18.0) [facility] gm/dL gm/dL Reference Laboratori es: [address], [place] ? ? ? Hct 43.9 % (42.0-52.0) [facility] % Reference Laboratori es: [address], [place] ? ? High Mcv 95.0 fL (80.0-94.0) Final [facility] fL Reference Laboratori es: [address], [place] ? ? ? Mch 31.4 pg (27.0-34.0) Final [facility] pg Reference Laboratori es: [address], [place] ? ? ? Mchc 33.0 (33.0-37.0) [facility] g/dL g/dL Reference Laboratori es: [address], [place] ? ? ? Plt 260 (150-460) Final [facility] K/mm3 K/mm3 Reference Laboratori es: [address], [place] ? ? ? RDW-SD 41.4 fL (<47.0) fL Final [facility] Reference Laboratori es: [address], [place] ? ? ? Mpv 9.7 fL (9.4-12.4) Final [facility] fL Reference Laboratori es: [address], [place] ? ? ? Automated 0.0 ? Final [facility] NRBC #/100 Reference WBC's Laboratori es: [address], [place] ? ? ? Abs. NRBC 0.0 ? [facility] K/mm3 Reference Laboratori es: [address], [place] ? ? ? Neut # 4.6 (1.3-7.0) [facility] K/mm3 K/mm3 Reference Laboratori es: [address], [place] ? ? ? Lymph # 1.5 (0.8-3.1) [facility] K/mm3 K/mm3 Reference Laboratori es: [address], [place] ? ? ? [place]# 0.7 (0.4-1.3) Final [facility] K/mm3 K/mm3 Reference Laboratori es: [address], [place] ? ? ? Eo # 0.2 (0.0-0.4) Final [facility] K/mm3 K/mm3 Reference Laboratori es: [address], [place] ? ? ? Baso # 0.1 (0.0-0.1) Final [facility] K/mm3 K/mm3 Reference Laboratori es: [address], [place] ? ? ? Abs. Imm 0.0 ? [facility] Gran K/mm3 Reference Laboratori es: [address], [place] ? ? ? Neut 65.5 % (44-76) % [facility] Reference Laboratori es: [address], [place] ? ? ? Lymph 21.2 % (15-43) % Final [facility] Reference Laboratori es: [address], [place] ? ? ? Monocyte 9.7 % (4.5-10.5) Final [place] % Reference Laboratori es: [address], [place] ? ? ? Eo 2.1 % (0-6) % Final [facility] Reference Laboratori es: [address], [place] ? ? ? Baso 0.9 % (0-2) % Final [facility] Reference Laboratori es: [address], [place] ? ? ? Imm Gran 0.6 % (0.0-0.6) % [facility] Reference Laborator[facility] es: [address], [place] 01/04/2017 CBC W/ Auto ? Wbc 9.1 (4.0-11.0) Cara l [facility] Diff K/mm3 K/mm3 Reference Laboratori es: [address], [place] ? ? ? Rbc 4.81 (4.70-6.10) Final [facility] M/mm3 M/mm3 Reference Laboratori es: [address], [place] ? ? ? Hgb 14.5 (14.0-18.0) [facility] gm/dL gm/dL Reference Laboratori es: [address], [place] ? ? ? Hct 44.0 % (42.0-52.0) [facility] % Reference Laboratori es: [address], [place] ? ? ? Mcv 91.5 fL (80.0-94.0) Final [facility] fL Reference Laboratori es: [address], [place] ? ? ? Mch 30.1 pg (27.0-34.0) Final [facility] pg Reference Laboratori es: [address], [place] ? ? ? Mchc 33.0 (33.0-37.0) [facility] g/dL g/dL Reference Laboratori es: [address], [place] ? ? ? Plt 255 (150-460) Final [facility] K/mm3 K/mm3 Reference Laboratori es: [address], [place] ? ? ? RDW-SD 38.5 fL (<47.0) fL Final [facility] Reference Laboratori es: [address], [place] ? ? ? Mpv 9.5 fL (9.4-12.4) Final [facility] fL Reference Laboratori es: [address], [place] ? ? ? Automated 0.0 ? Final [facility] NRBC #/100 Reference WBC's Laboratori es: [address], [place] ? ? ? Abs. NRBC 0.0 ? Final [facility] K/mm3 Reference Laboratori es: [address], [place] ? ? ? Neut # 6.3 (1.3-7.0) Final [facility] K/mm3 K/mm3 Reference Laboratori es: [address], [place] ? ? ? Lymph # 1.7 (0.8-3.1) Final [facility] K/mm3 K/mm3 Reference Laboratori es: [address], [place] ? ? ? [place]# 0.8 (0.4-1.3) Final [facility] K/mm3 K/mm3 Reference Laboratori es: [address], [place] ? ? ? Eo # 0.2 (0.0-0.4) Final [facility] K/mm3 K/mm3 Reference Laboratori es: [address], [place] ? ? ? Baso # 0.1 (0.0-0.1) Final [facility] K/mm3 K/mm3 Reference Laboratori es: [address], [place] ? ? ? Abs. Imm 0.0 ? Final [facility] Gran K/mm3 Reference Laboratori es: [address], [place] ? ? ? Neut 69.6 % (44-76) % [facility] Reference Laboratori es: [address], [place] ? ? ? Lymph 18.6 % (15-43) % Final [facility] Reference Laboratori es: [address], [place] ? ? ? Monocyte 8.3 % (4.5-10.5) Final [place] % Reference Laboratori es: [address], [place] ? ? ? Eo 2.5 % (0-6) % Final [facility] Reference Laboratori es: [address], [place] ? ? ? Baso 0.8 % (0-2) % Final [facility] Reference Laboratori es: [address], [place] ? ? ? Imm Gran 0.2 % (0.0-0.6) % [facility] Reference Laboratori es: [address], [place] 01/04/2017 ALT (Alanine ? Alt 25 U/L (0-41) U/L Fin al [facility] Aminotransfe Refe michael lozano), Serum Labo ratories: or Plasma [address], [place] 01/04/2017 AST/SGOT ? Ast 20 U/L (0-38) U/L Final [facility] (Aspartate Refere nce Aminotransfe Labo ratories: [facility]ase), Serum [address], [place] 01/04/2017 BMP, Serum ? Glucose 89 (70-99) Final [facility] or Plasma mg/dL mg/dL Referen ce Laboratori es: [address], [place] ? ? ? Bun 15 (6-20) Final [facility] mg/dL mg/dL Reference Laboratori es: [address], [place] ? ? ? Creatinine 1.0 (0.7-1.2) [facility] mg/dL mg/dL Reference Laboratori es: [address], [place] ? ? ? Sodium 133 (133-145) Final [facility] mmol/L mmol/L Reference Laboratori es: [address], [place] ? ? ? Potassium 4.8 (3.6-5.2) Final [place] [facility] mmol/L mmol/L Reference Laboratori es: [address], [place] ? ? ? Chloride 98 (98-107) [facility] mmol/L mmol/L Reference Laboratori es: [address], [place] ? ? ? Bicarbonate 23 (22-29) Final [place] [facility] mmol/L mmol/L Reference Laboratori es: [address], [place] ? ? ? Anion Gap 12 (4-17) Final [facility] Reference Laboratori es: [address], [place] ? ? ? Calcium 10.3 (8.6-10.5) Final [facility] mg/dL mg/dL Reference Laboratori es: [address], [place] ? ? ? Est GFR Non 94 ? Final [facility] mL/min/ Referenc e [place] 1.73 M2 Laborat ories: [address], [place] ? ? ? Est GFR 109 ? Final [facility] mL/min/ Referenc e [place] 1.73 M2 Laborat ories: [address], [place] 01/04/2017 Lipid Panel, High Cholesterol, 234 (<200) Final [facility] Serum Total mg/dL mg/dL Reference Laboratori es: [address], [place] ? ? High Triglyceride 267 (<150) Final [place] [facility] mg/dL mg/dL Reference Laboratori es: [address], [place] ? ? ? HDL Chol 44 (>39) mg/dL [facility] mg/dL Reference Laboratori es: [address], [place] ? ? High LDL 137 (0-130) Final [facility] Cholesterol, mg/dL mg/dL Refe rence Calculated Labora tories: [address], [place] ? ? High Non HDL 190 (<160) Final [facility] Cholesterol mg/dL mg/dL Refer ence (Calc) Laboratori es: [address], [place] 2016 ALT (Alanine ? Alt 23 U/L (0-41) U/L Fin al [facility] Aminotransfe Refe tabbyce rascara), Serum Labo ratories: or Plasma [address], [place] 2016 AST/SGOT ? Ast 19 U/L (0-38) U/L Final [facility] (Aspartate Refere nce Aminotransfe Labo ratories: [facility]), Serum [address], [place] 2016 BMP, Serum ? Glucose 96 (70-99) Final [facility] or Plasma mg/dL mg/dL Referen ce Laboratori es: [address], [place] ? ? ? Bun 9 mg/dL (6-20) Final [facility] mg/dL Reference Laboratori es: [address], [place] ? ? ? Creatinine 1.0 (0.7-1.2) [facility] mg/dL mg/dL Reference Laboratori es: [address], [place] ? ? ? Sodium 137 (133-145) Final [facility] mmol/L mmol/L Reference Laboratori es: [address], [place] ? ? ? Potassium 4.5 (3.6-5.2) Final [place] [facility] mmol/L mmol/L Reference Laboratori es: [address], [place] ? ? ? Chloride 100 (98-107) Final [facility] mmol/L mmol/L Reference Laboratori es: [address], [place] ? ? ? Bicarbonate 26 (22-29) Final [place] [facility] mmol/L mmol/L Reference Laboratori es: [address], [place] ? ? ? Anion Gap 11 (4-17) Final [facility] Reference Laboratori es: [address], [place] ? ? ? Calcium 9.7 (8.6-10.5) Final [facility] mg/dL mg/dL Reference Laboratori es: [address], [place] ? ? ? Est GFR Non 94 ? Final [facility] mL/min/ Referenc e [place] 1.73 M2 Laborat ories: [address], [place] ? ? ? Est GFR 109 ? Final [facility] mL/min/ Referenc e [place] 1.73 M2 Laborat ories: [address], [place] 2016 Lipid Panel, High Cholesterol, 206 (<200) Final [facility] Serum Total mg/dL mg/dL Reference Laboratori es: [address], [place] ? ? High Triglyceride 220 (<150) Final [place] [facility] mg/dL mg/dL Reference Laboratori es: [address], [place] ? ? ? HDL Chol 44 (>39) mg/dL [facility] mg/dL Reference Laboratori es: [address], [place] ? ? ? LDL 118 (0-130) Final [facility] Cholesterol, mg/dL mg/dL Refe rence Calculated Labora tories: [address], [place] ? ? High Non HDL 162 (<160) Final [facility] Cholesterol mg/dL mg/dL Refer ence (Calc) Laboratori es: [address], [place] 03/21/2014 CBC W/ Auto ? Wbc 9.8 (4.0-11.0) Cara l [facility] Diff K/mm3 K/mm3 Reference Laboratori es: [address], [place] ? ? Low Rbc 4.59 (4.70-6.10) Final [facility] M/mm3 M/mm3 Reference Laboratori es: [address], [place] ? ? ? Hgb 14.6 (14.0-18.0) [facility] gm/dL gm/dL Reference Laboratori es: [address], [place] ? ? ? Hct 43.1 % (42.0-52.0) [facility] % Reference Laboratori es: [address], [place] ? ? ? Mcv 93.9 fL (80.0-94.0) Final [facility] fL Reference Laboratori es: [address], [place] ? ? ? Mch 31.8 pg (27.0-34.0) Final [facility] pg Reference Laboratori es: [address], [place] ? ? ? Mchc 33.9 % (33.0-37.0) [facility] % Reference Laboratori es: [address], [place] ? ? ? Plt 251 (150-460) Final [facility] e K/mm3 K/mm3 Reference Laboratori es: [address], [place] ? ? ? RDW-SD 40.3 fL (<47.0) fL Final [facility] Reference Laboratori es: [address], [place] ? ? ? Mpv 9.7 fL (9.4-12.4) Final [facility] fL Reference Laboratori es: [address], [place] ? ? ? Automated 0.0 ? Final [facility] NRBC #/100 Reference WBC's Laboratori es: [address], [place] ? ? ? Abs. NRBC 0.0 ? Final [facility] K/mm3 Reference Laboratori es: [address], [place] 03/21/2014 BMP, Serum High Glucose 101 (70-99) Final [facility] or Plasma mg/dL mg/dL Referen ce Laboratori es: [address], [place] ? ? ? Bun 12 (6-20) Final [facility] mg/dL mg/dL Reference Laboratori es: [address], [place] ? ? ? Creatinine 0.9 (0.7-1.2) Final [facility] mg/dL mg/dL Reference Laboratori es: [address], [place] ? ? ? Sodium 137 (133-145) Final [facility] mmol/L mmol/L Reference Laboratori es: [address], [place] ? ? ? Potassium 3.7 (3.6-5.2) Final [place] [facility] mmol/L mmol/L Reference Laboratori es: [address], [place] ? ? ? Chloride 98 (98-107) Final [facility] mmol/L mmol/L Reference Laboratori es: [address], [place] ? ? ? Bicarbonate 26 (22-29) Final [place] [facility] mmol/L mmol/L Reference Laboratori es: [address], [place] ? ? ? Anion Gap 13 (4-17) Final [facility] Reference Laboratori es: [address], [place] ? ? ? Calcium 9.9 (8.6-10.5) Final [facility] mg/dL mg/dL Reference Laboratori es: [address], [place] ? ? ? Est GFR Non >60 ? Final [facility] mL/min/ Referenc e [place] 1.73 M2 Laborat ories: [address], [place] ? ? ? Est GFR >60 ? Final [facility] mL/min/ Referenc e [place] 1.73 M2 Laborat ories: [address], [place] 03/21/2014 Hepatic ? Bilirubin,to 0.1 (0-1.2) Cara l [facility] Function vinay mg/dL mg/dL Referenc e Panel, Serum Labo ratories: [address], [place] ? ? ? Bilirubin, 0.1 (0-0.3) Final [facility] Direct mg/dL mg/dL Reference Laboratori es: [address], [place] ? ? ? Indirect 0.0 (0.0-0.7) Final [facility] Bilirubin mg/dL mg/dL Referen ce Laboratori es: [address], [place] ? ? ? Albumin 4.6 (3.4-4.8) Final [facility] gm/dL gm/dL Reference Laboratori es: [address], [place] ? ? ? Ast 21 U/L (0-38) U/L Final [facility] Reference Laboratori es: [address], [place] ? ? ? Alt 23 U/L (0-41) U/L Final [facility] Reference Laboratori es: [address], [place] ? ? ? Alk Phos 79 U/L (40-129) Final [facility] U/L Reference Laboratori es: [address], [place] ? ? ? Total 7.0 (6.2-8.2) Final [facility] Protein gm/dL gm/dL Reference Laboratori es: [address], [place] 03/21/2014 T4, Free, ? Free T4 0.89 (0.70-1.80) Fin al [facility] Serum NG/dL NG/dL Reference Laboratori es: [address], [place] 03/21/2014 TSH, Serum ? Tsh 1.36 (0.40-4.00) Cara l [facility] or Plasma mIU/mL mIU/mL Referen ce Laboratori es: [address], [place] 03/14/2012 Microalbumin ? Micro-albumi <3.0 (0-20) mg/L Final [facility] , Urine n mg/L Reference Laboratori es: [address], [place] ? ? ? Malb/creat <11.1 (0-20) Final [facility] Ratio mg/gm mg/gm Reference Laboratori es: [address], [place] ? ? ? Urine Creat 27.0 ? Final [facility] for Micro mg/dL Referen ce Albumin Laborator ies: [address], [place] 03/14/2012 Renal ? Glucose 97 (70-99) Final [place] [facility] Function mg/dL mg/dL Referenc e Panel, Serum Labo ratories: [address], [place] ? ? ? Bun 11 (6-20) Final [facility] mg/dL mg/dL Reference Laboratori es: [address], [place] ? ? ? Creatinine 0.9 (0.7-1.2) Final [facility] mg/dL mg/dL Reference Laboratori es: [address], [place] ? ? ? Sodium 138 (133-145) Final [facility] mmol/L mmol/L Reference Laboratori es: [address], [place] ? ? ? Potassium 4.9 (3.6-5.2) Final [place] [facility] mmol/L mmol/L Reference Laboratori es: [address], [place] ? ? ? Chloride 102 (98-107) Final [facility] mmol/L mmol/L Reference Laboratori es: [address], [place] ? ? ? Bicarbonate 27 (22-29) Final [place] [facility] mmol/L mmol/L Reference Laboratori es: [address], [place] ? ? ? Anion Gap 9 (4-17) Final [facility] Reference Laboratori es: [address], [place] ? ? ? Albumin 4.7 (3.4-4.8) Final [facility] gm/dL gm/dL Reference Laboratori es: [address], [place] ? ? ? Calcium 10.1 (8.6-10.5) Final [facility] mg/dL mg/dL Reference Laboratori es: [address], [place] ? ? ? Phosphorus 3.5 (2.5-4.5) [facility] mg/dL mg/dL Reference Laboratori es: [address], [place] ? ? ? Est GFR Non >60 ? Final [facility] mL/min/ Referenc e [place] 1.73 M2 Laborat ories: [address], [place] ? ? ? Est GFR >60 ? Final [facility] mL/min/ Referenc e [place] 1.73 M2 Laborat ories: [address], [place] 03/14/2012 Urine ? Urine random ? Final [facility] Collection Collection hrs Re ference Time Period Laboratori es: [address], [place] 08/24/2011 Microalbumin ? Micro-albumi <3.0 (0-20) mg/L Final [facility] , Urine n mg/L Reference Laboratori es: [address], [place] ? ? ? Malb/creat ? (0-20) Final [facility] Ratio mg/gm Reference Laboratori es: [address], [place] ? ? ? Urine Creat 10.8 ? Final [facility] for Micro mg/dL Referen ce Albumin Laborator ies: [address], [place] 08/24/2011 Urine ? Urine random ? Final [facility] Collection Collection hrs Re ference Time Period Laboratori es: [address], [place] 08/24/2011 Renal ? Glucose 94 (70-99) Final [place] [facility] Function mg/dL mg/dL Referenc e Panel, Serum Labo ratories: [address], [place] ? ? ? Bun 8 mg/dL (6-20) Final [facility] mg/dL Reference Laboratori es: [address], [place] ? ? ? Creatinine 0.8 (0.7-1.2) Final [facility] mg/dL mg/dL Reference Laboratori es: [address], [place] ? ? ? Sodium 137 (133-145) Final [facility] mmol/L mmol/L Reference Laboratori es: [address], [place] ? ? ? Potassium 4.6 (3.6-5.2) Final [place] [facility] mmol/L mmol/L Reference Laboratori es: [address], [place] ? ? ? Chloride 98 (98-107) Final [facility] mmol/L mmol/L Reference Laboratori es: [address], [place] ? ? ? Bicarbonate 28 (22-29) Final [place] [facility] mmol/L mmol/L Reference Laboratori es: [address], [place] ? ? ? Anion Gap 11 (4-17) Final [facility] Reference Laboratori es: [address], [place] ? ? ? Albumin 4.7 (3.4-4.8) Final [facility] gm/dL gm/dL Reference Laboratori es: [address], [place] ? ? ? Calcium 10.2 (8.6-10.5) Final [facility] mg/dL mg/dL Reference Laboratori es: [address], [place] ? ? ? Phosphorus 3.7 (2.5-4.5) Final [facility] mg/dL mg/dL Reference Laboratori es: [address], [place] ? ? ? Est GFR Non >60 ? Final [facility] mL/min/ Referenc e [place] 1.73 M2 Laborat ories: [address], [place] ? ? ? Est GFR >60 ? Final [facility] mL/min/ Referenc e [place] 1.73 M2 Laborat ories: [address], [place] 06/18/2010 Microalbumin ? Micro-albumi <3.0 (0-20) mg/L Final [facility] , Urine n mg/L Reference Laboratori es: [address], [place] ? ? ? Malb/creat <19.7 (0-20) Final [facility] Ratio mg/gm mg/gm Reference Laboratori es: [address], [place] ? ? ? Urine Creat 15.2 ? Final [facility] for Micro mg/dL Referen ce Albumin Laborator ies: [address], [place] 06/18/2010 BMP, Serum ? Glucose 82 (70-99) Final [facility] or Plasma mg/dL mg/dL Referen ce Laboratori es: [address], [place] ? ? ? Bun 11 (6-20) Final [facility] mg/dL mg/dL Reference Laboratori es: [address], [place] ? ? ? Creatinine 0.8 (0.7-1.2) Final [facility] mg/dL mg/dL Reference Laboratori es: [address], [place] ? ? Low Sodium 132 (133-145) Final [facility] mmol/L mmol/L Reference Laboratori es: [address], [place] ? ? ? Potassium 4.4 (3.6-5.2) Final [place] [facility] mmol/L mmol/L Reference Laboratori es: [address], [place] ? ? Low Chloride 96 (98-107) Final [facility] mmol/L mmol/L Reference Laboratori es: [address], [place] ? ? ? Bicarbonate 25 (22-29) Final [place] [facility] mmol/L mmol/L Reference Laboratori es: [address], [place] ? ? ? Anion Gap 11 (4-17) Final [facility] Reference Laboratori es: [address], [place] ? ? ? Calcium 10.1 (8.6-10.5) Final [facility] mg/dL mg/dL Reference Laboratori es: [address], [place] ? ? ? Est GFR Non >60 ? Final [facility] mL/min/ Referenc e [place] 1.73 M2 Laborat ories: [address], [place] ? ? ? Est GFR >60 ? Final [facility] mL/min/ Referenc e [place] 1.73 M2 Laborat ories: [address], [place] 06/18/2010 Lipid Panel, High Cholesterol, 251 (0-200) Final [facility] Serum Total mg/dL mg/dL Reference Laboratori es: [address], [place] ? ? ? Triglyceride 131 (0-150) Final [facility] mg/dL mg/dL Reference Laboratori es: [address], [place] ? ? ? HDL Chol 60 (>40) mg/dL [facility] mg/dL Reference Laboratori es: [address], [place] ? ? High LDL 165 (0-130) Final [facility] Cholesterol, mg/dL mg/dL Refe rence Calculated Labora tories: [address], [place] ? ? High Non HDL 191 (0-160) Final [facility] Cholesterol mg/dL mg/dL Refer ence (Calc) Laboratori es: [address], [place] 06/18/2010 Urine ? Urine random ? Final [facility] Collection Collection hrs Re ference Time Period Laboratori es: [address], [place] 07/14/2009 Microalbumin ? Micro-albumi <3.0 (0-20) mg/L Final [facility] , Urine n mg/L Reference Laboratori es: [address], [place] ? ? ? Malb/creat <13.2 (0-20) Final [facility] Ratio mg/gm mg/gm Reference Laboratori es: [address], [place] ? ? ? Urine Creat 22.6 ? Final [facility] for Micro mg/dL Referen ce Albumin Laborator ies: [address], [place] 07/14/2009 Urine ? Urine random ? Final [facility] Collection Collection hrs Re ference Time Period Laboratori es: [address], [place] 07/14/2009 Renal ? Glucose 75 (70-99) Final [place] [facility] Function mg/dL mg/dL Referenc e Panel, Serum Labo ratories: [address], [place] ? ? ? Bun 11 (6-20) Final [facility] mg/dL mg/dL Reference Laboratori es: [address], [place] ? ? ? Creatinine 0.8 (0.7-1.2) Final [facility] mg/dL mg/dL Reference Laboratori es: [address], [place] ? ? ? Sodium 136 (133-145) Final [facility] mmol/L mmol/L Reference Laboratori es: [address], [place] ? ? ? Potassium 4.5 (3.6-5.2) Final [place] [facility] mmol/L mmol/L Reference Laboratori es: [address], [place] ? ? ? Chloride 100 (98-107) Final [facility] mmol/L mmol/L Reference Laboratori es: [address], [place] ? ? ? Bicarbonate 26 (22-29) Final [place] [facility] mmol/L mmol/L Reference Laboratori es: [address], [place] ? ? ? Anion Gap 10 (4-17) Final [facility] Reference Laboratori es: [address], [place] ? ? High Albumin 4.9 (3.4-4.8) Final [facility] gm/dL gm/dL Reference Laboratori es: [address] ? ? ? Calcium 10.1 (8.6-10.5) Final [facility] mg/dL mg/dL Reference Laboratori es: [address] ? ? ? Phosphorus 3.4 (2.5-4.5) [facility] mg/dL mg/dL Reference Laboratori es: [address] ? ? ? Est GFR Non >60 ? Final [facility] mL/min/ Referenc e [place] 1.73 M2 Laborat ories: [address] ? ? ? Est GFR >60 ? Final [facility] mL/min/ Referenc e [place] 1.73 M2 Laborat ories: [address] 07/14/2009 Magnesium, ? Magnesium 1.7 (1.3-1.9) Fi nal [facility] Serum or mEq/L mEq/L Referenc e Plasma Laboratori es: [address] Kuldip Topeteel catherine Past Encounters 10/29/2021 Pain in Right Hip Joint; Essential Hyper tension; Impaired Fasting Glycemia Walt Nascimento PA-C: [address] [phone], Ph. 10/22/2021 Pain in Right Hip Joint; Low Back Pain; Recurrent Falls Christi Sinha MD: [address] [phone], Ph. 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 08/20/2020 Essential Hypertension; Hyperlipidemia CAMPOS SebastianC: [address] [phone], Ph. Social History Tobacco Smoking Status Never Smoker Vaccine List Vaccine Type COVID-19, mRNA, LNP-S, [...] 12/04/2012 Td (adult), adsorbed 08/19/2000 Tdap 02/19/2010 Plan of Care Patient Goals Patient Target Blood Pressure 140 / 90 Blood Pressure 140 / 90 Excess Body Weight Loss % 5 LDL Direct yearly LDL Direct <100 Pt advised and agrees to eat a low salt low fat diet; to do moderate exercise (such as walking) 150 minutes per week; to limit alcohol intake (goal of 2 drinks per day or less for men or 1 for woman). and to monitor dietary sodium. Will maeve tor home blood pressures and bring readings to appointments. Patient preferences and goals incorporated in plan and updated/modified as needed to reflect progress toward goal. Pt agrees to follow low fat diet, avoid saturated fats , decrease carbohydrate intake to 45 - 50 gm per meal , pt agrees to develop a regular pattern of exercise such as walking 30 minutes a day 3 times a week, Pt will keep a record of exerci se and activity level Patient preferences and goals incorporated in plan and updated/modified as needed to reflect progress toward goal. Pt advised and agrees to work on self-mo nitoring behaviors; begin an appropriate diet for weight loss (such as a low carbohydrate diet), to do moderate exercise (such as walking) for approximately 150 m inutes per week; and to identify desirab le and timely rewards that will reinforce achievement of specific weight loss goals. Pt advised and agrees to eat a low salt low fat diet; to do moderate exercise (such as walking) 150 minutes per week; to galeana it alcohol intake (goal of 2 drinks per day or less for men or 1 for woman). and to monitor dietary sodium. Will monitor home blood pressures and bring readings to ap pointments. Patient preferences and goals incorporated in plan and updated/modifie d as needed to reflect progress toward goal. Reminders Provider Appointments None recorded. ? ? Lab None recorded. ? ? Referral None recorded. ? ? Procedures None recorded. ? ? Surgeries None recorded. ? ? Imaging None recorded. ? ? Vitals 10/29/2021 01:00PM FOLLOW UP 30MIN Height Weight BMI Blood Pressure 5 ft 9.25 in 237 lbs 16 oz 34.9 kg/m2 105/68 mm[Hg] 10/22/2021 01:00PM UV30 Height Weight BMI Blood Pressure 5 ft 9.25 in 241 lbs 16 oz 35.5 kg/m2 113/74 mm[Hg] 02/19/2021 01:00PM AWV30 Height Weight BMI Blood Pressure 5 ft 9.25 in 241 lbs 2 oz 35.3 kg/m2 98/63 mm[Hg] 08/20/2020 01:30PM FOLLOW UP Height Weight BMI Blood Pressure 5 ft 9.25 in 239 lbs 35 kg/m2 124/69 mm[Hg] 02/18/2020 01:00PM AWV30 Height Weight BMI Blood Pressure 5 ft 9.25 in 233 lbs 16 oz 34.3 kg/m2 97/60 mm[Hg] 01/15/2019 03:15PM PE EST Height Weight BMI Blood Pressure 5 ft 9.25 in 237 lbs 16 oz 34.9 kg/m2 113/73 mm[Hg] 09/13/2018 11:30AM FOLLOW UP Height Weight BMI Blood Pressure 5 ft 9.25 in 239 lbs 35 kg/m2 108/66 mm[Hg] 05/16/2018 11:00AM FOLLOW UP 30MIN Height Weight BMI Blood Pressure 5 ft 9.25 in 236 lbs 34.6 kg/m2 106/60 mm[Hg] 01/11/2018 11:00AM PE EST Height Weight BMI Blood Pressure 5 ft 9.25 in 232 lbs 16 oz 34.2 kg/m2 127/82 mm[Hg] 11/28/2017 03:00PM FOLLOW UP Height Weight BMI Blood Pressure 5 ft 9.25 in 230 lbs 6 oz 33.8 kg/m2 115/74 mm[Hg] 11/22/2017 04:15PM FOLLOW UP Height Weight BMI Blood Pressure 5 ft 9.25 in 236 lbs 16 oz 34.7 kg/m2 122/66 mm[Hg] 07/11/2017 11:30AM FOLLOW UP Height Weight BMI Blood Pressure 5 ft 9.25 in 235 lbs 2 oz 34.5 kg/m2 103/70 mm[Hg] 02/08/2017 04:15PM URGENT Height Weight BMI Blood Pressure 5 ft 9.25 in 232 lbs 34 kg/m2 106/68 mm[Hg] 01/04/2017 12:45PM PE EST Height Weight BMI Blood Pressure 5 ft 9.25 in 232 lbs 34 kg/m2 117/76 mm[Hg] 05/27/2016 11:30AM FOLLOW UP Height Weight BMI Blood Pressure 5 ft 9.25 in 226 lbs 33.1 kg/m2 113/68 mm[Hg] 06/05/2015 01:45PM PE EST Height Weight BMI Blood Pressure 5 ft 9.25 in 239 lbs 35 kg/m2 105/69 mm[Hg] 03/21/2014 01:15PM PE EST Height Weight BMI Blood Pressure 5 ft 9.25 in 238 lbs 34.9 kg/m2 112/71 mm[Hg] 03/20/2013 Height Weight Blood Pressure 5 ft 9.25 in 236 lbs 6.08 oz 121/78 mm[Hg] 12/04/2012 Height Weight Blood Pressure 5 ft 9.25 in 232 lbs 134/87 mm[Hg] 03/16/2012 Height Weight Blood Pressure 5 ft 9.25 in 231 lbs 4 oz 121/85 mm[Hg] 08/24/2011 Height Weight Blood Pressure 5 ft 9.25 in 242 lbs 129/69 mm[Hg] 08/19/2011 Height Blood Pressure 5 ft 9.25 in 112/71 mm[Hg] 02/22/2011 Height Weight Blood Pressure 5 ft 9.25 in 242 lbs 122/64 mm[Hg] 09/28/2010 Height Weight Blood Pressure 5 ft 9.25 in 241 lbs 8 oz 141/98 mm[Hg] 08/20/2010 Height Weight Blood Pressure 5 ft 9.25 in 238 lbs 123/78 mm[Hg] 02/19/2010 Height Weight Blood Pressure 5 ft 9.25 in 230 lbs 3.2 oz 120/80 mm[Hg] 10/20/2009 Height Weight Blood Pressure 5 ft 8 in 231 lbs 126/78 mm[Hg] 07/14/2009 Height Weight Blood Pressure 5 ft 8 in 232 lbs 4 oz 116/68 mm[Hg] 02/17/2009 Height Weight Blood Pressure 5 ft 8 in 239 lbs 112/70 mm[Hg] 02/12/2008 Weight Blood Pressure 242 lbs 130/80 mm[Hg] 10/16/2007 Weight Blood Pressure 246 lbs 4 oz 110/68 mm[Hg] 08/07/2007 Weight Blood Pressure 245 lbs 110/62 mm[Hg] 05/01/2007 Weight Blood Pressure 249 lbs 6.08 oz 120/80 mm[Hg] 02/06/2007 Height Weight Blood Pressure 5 ft 9.5 in 249 lbs 6.08 oz 142/70 mm[Hg]
--- OUTSIDE RECORDS SUMMARY | 2021-12-05 11:08 | XMS_ITS | Encounter Summary ---
:1975 Author Care Team Providers Name Role Phone Walt Curtis PA-C Primary Care Provider [phone] [facility] Referring Provider [phone] Services Morris Tang Criminal Research Specialist [phone] [place] [facility] Psychologist [phone] Reason for Visit Right hip pain Ongoing intermittent R hip pain. See pre vious office notes Assessment and Plan 1. Pain in right hip joint likely has traumatic trochanteric bursi tis - will get ortho eval (they will likely get xrays if feel is warranted, may need jovanny injxn) -- meanwhile, trial c salonpas patch in am (off in pm), ice hs ? orthopedic surgeon referral ? hip pain: care instructions ? trochanteric bursitis: exercises 2. Essential hypertension on low side - occ orthostatic - curr as ymptomatic - but rec cut lis in 1/2, check bmp ac pe in a few months ? lisinopril 20 mg tablet ? BMP, serum or plasma 3. Impaired fasting glycemia ? HbA1c (hemoglobin A1c), blood Discussion Note Medications (OTC, herbal therapies, sup plements) reviewed and reconciled with patient and or caregiver, including pote ntial side effects, drug interactions, instructions, and the consequences of no t taking medication. Reviewed potential barriers to medication adherence, such a s side effects from medication or cost of medication. Plan of Care Reminders Provider Appointments Follow up 30Min 12/09/2021 Walt Curtis PA-C 2:30PM ? Awv30 02/22/2022 Walt Curtis PA-C 11:00AM Lab BMP, Serum or Plasma 10/29/2021 [facility] ? HbA1C (Hemoglobin a1C), 10/29/2021 [facility] Blood Referral Orthopedic Surgeon 11/02/2021 [place] [facility] Procedures None recorded. ? ? Surgeries None [...] lbs 16 oz 34.9 kg/m2 105/68 mm[Hg] Results Lab Results None recorded. Allergies [...] following? Are you able to walk? YESWOREST Are you able to care for Y yourself? Are you currently employed? N Have you served in the N [employer]? How much tobacco do you chew? none Is blood transfusion acceptable Y in an emergency? What is your level of alcohol None consumption? Which illicit or recreational none drugs have you used? Are you passively exposed to N smoke? Do you or have you ever used N any other forms of tobacco or nicotine? Do you take precautions to Notes: does not drive prevent distracted driving? Seat belts used routinely Y Smoke alarm in home Y At what age did you start 0 smoking tobacco? How many children do you have? 0 What was the date of your most 02/19/2021 recent tobacco screening? Do you use sunscreen routinely? Y Do you have an advanced N directive? Do you or have you ever used Never used electronic e-cigarettes or vape? cigarettes Do you use any illicit or N recreational drugs? What is your exercise level? Occasional Notes: [place] How many years have you smoked 0 tobacco? How often do you need to have Always someone help you when you read instructions, pamphlets, or other written material from your doctor or pharmacy? Live alone or with others? with others Notes: Home care provider (Xiomy Lawrence) and her (Nithin doyle Howard) What is your level of caffeine Occasional Notes: 1 cup of coffee consumption? daily What is your occupation? disabled Family History Relation Problem Onset Age of Age Notes Mother Well adult (No Information) N/A (No Notes) Father Well adult (No Information) N/A (No Notes) Sister Diabetes mellitus (No Information) N/A (No No sabi) Functional Status Unknown. Past Encounters 10/29/2021 Pain in Right Hip Joint; Essential Hyper tension; Impaired Fasting Glycemia CAMPOS SebastinaC: [address], [place] [address], Ph. 10/22/2021 Pain in Right Hip Joint; Low Back Pain; Recurrent Falls Christi Sinha MD: [address], [place] [address], Ph. History of Present Illness Note: <div>here for f/u R hip pain - reviewed last week's ov note c SB - has tried ibu, sent to PT - hasn't gone yet</div><div>
</div><div>c/o R hip pain worse by day, less at night, able to walk okay, aggrav by getting out of chair, no allev factors xtime (little help c prn ibu)</div> Review of Systems None recorded. Physical Exam ? Notes: <div>tender R trochanteric b ursa c direct palp</div><div>
</div><div>seated on exam bed - no pain c L hi p flexion, but + pain c R hip flexion</div>
--- NOTE | 2021-12-05 11:18 | ECG_ITS ---
Test Reason : MED INGESTION Blood Pressure : / mmHG Vent. Rate : 073 BPM Atrial Rate : 073 BPM P-R Int : 132 ms QRS Dur : 122 ms QT Int : 416 ms P-R-T Axes : 054 -27 -03 degrees QTc Int : 458 ms Normal sinus rhythm Non-specific intra-ventricular conduction delay Nonspecific T wave abnormality Abnormal ECG When compared with ECG of 16-JUL-2019 10:45, ST no longer elevated in Lateral leads Nonspecific T wave abnormality, worse in Inferior leads Referred By: Ashley Gould Electronically Signed By:JEANINE OLIVER
[2021-12-05 11:23] VITALS: BP 131/78; PULSE 68; RESP 20; TEMP 37; O2SAT 96
--- NOTE | 2021-12-05 11:26 | ED_ITS ---
HPI - Overdose General Chief Complaint: General Medical Stated Complaint: medication ingestion Time Seen by Provider: 12/05/21 11:07 Source: patient and family (Care Given Beth Lawrence) Mode of arrival: ambulatory Limitations: other (hx of TBI c right sided weakness c developmental delay) History of Present Illness HPI Narrative: 46-year-old male with a past medical history of head injury/TBI with right-sided weakness, history of seizures with a [employer]ESS[employer] shunt who is cognitive delayed with right-sided weakness, dysarthria, walks with a limp, has a history of bipolar disorder currently living with CareGiver Beth Lawrence presenting to the ER after accidental ingestion of 200 mg of lisinopril at approximately 09:00. Caregiver at bedside reports that they recently instructed to decrease his 20 mg lisinopril daily to 10 the 20 mg tablets in half and put them in a separate container and this morning the patient was trying to be ?helpful?, therefore he took the medications that were put on the side and she noticed after he took them. She reports that his medications are using a lock box although due to these medications she recently cut she did not locked him a. He did not tried to harm himself in any way he reports. He denies any SI/HI/auditory visualizations thoughts of self-injury. Caregiver reports he is at baseline. He denies any symptoms at this time including dizziness, headaches, chest pain or shortness of breath, weakness, nausea or vomiting or abdominal pain or any other symptoms. 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 ) Time: 09:00 Timing confirmed by: caregiver (Beth) Substance Ingested Lisinopril: Strength of Substance: 20 Number of Pills Ingested: 10 Total Dose: 200 Time of Ingestion: 09:00 Intent: other (accidnetal was trying to be helful and take his pills so caregiver didnt have to give them to him ) How Overdose Was Discovered: family/friend present at time Context: Accidental Overdose: medication error Treatments Prior to Arrival: none Related Data Allergies Allergy/AdvReac Type Severity Reaction Status Date / Time No Known Allergies Allergy Unverified 11/22/19 16:50 seasonal Allergy Unknown Uncoded 06/08/16 00:00 Review of Systems Review of Systems: Constitutional : No Weight loss, No Fever, No Chills, No Night Sweats, No Fatigue, No Malaise ENT/Mouth : No Hearing loss, No Ear Pain, No Nasal Congestion, No Sinus Pain, No Hoarseness, No sore throat, No Rhinorrhea, No Swallowing Difficulty Eyes: No Eye Pain, No Swelling, No Redness, No Foreign Body, No Discharge, No Vision Changes Cardiovascular : No Chest Pain, No SOB, No Dyspnea on Exertion, No Orthopnea, No Edema, No Palpitations Respiratory : No Cough, No Sputum, No Wheezing, No Smoke Exposure, No Dyspnea Gastrointestinal : No Nausea, No Vomiting, No Diarrhea, No Constipation, No abdominal Pain, No Hematochezia, No Melena Genitourinary : no irregular bleeding, No Dysuria, No Urinary Frequency, No Hematuria, No Urinary Incontinence, No Urgency, No Flank Pain, No Urinary Flow Changes, No Hesitancy Musculoskeletal : No joint pain, No Myalgias, No Joint Swelling Skin : No Skin Lesions, No rash Neuro : No Weakness, No Numbness, No Paresthesias, No Loss of Consciousness, No Dizziness, No Headache Psych : No Anxiety/Panic, No Depression, No SI/HI/AH/VH, No Social Issues, Heme/Lymph: No Bruising, No Bleeding,No Lymphadenopathy Endocrine : No Polyuria, No Polydipsia, No Temperature Intolerance Yes all other systems are reviewed and are negative [facility], [facility] Past Medical History Attestation statement: The following information was validated with the patient. Source: old records reviewed, obtained from family and nursing notes reviewed Social History Social History Advance Directives: No Advance Directives Information Provided: No Physical Exam Vital Signs: Vital Signs: Last Vital Signs Temp 98.1 F 12/05/21 14:28 Pulse 69 12/05/21 14:28 Resp 18 12/05/21 14:28 BP 98/65 12/05/21 14:28 Pulse Ox 99 12/05/21 14:28 O2 Del Method 12/05/21 14:28 BMI result Body Mass Index 36.1 vital signs have been reviewed as normal and appeared to be correct. Blood pressure 99/58. Heart rate normal. Respiration rate normal. Temperature normal. Oxygen saturation normal. Appearance: Alert. Oriented X3. No acute distress. Head: Normal external exam. Normocephalic. Atraumatic. Eyes: PERRLA. EOMI. Conjunctiva and sclera normal. Eyelids normal. ENT: Pharynx normal. Uvula midline. Moist mucous membranes. No lesion s/ulcerations or masses noted on the tongue. Normal voice. No trismus noted. No drooling noted. No muffled voice noted. Neck: Normal inspection. Neck supple. FROM. No adenopathy. Thyroid Normal. No tracheal deviation noted. No crepitus is noted. No meningeal signs. No neck mass noted. No signs of trauma noted. CVS: Normal heart rate and rhythm. Heart sound normal. Pulses normal throughout. No murmurs/rales/gallops. Respiratory: No respiratory distress. Painless inspiration. Breath sounds normal. No wheezes/rales/rhonchi noted. Chest nontender. No accessory muscle usage noted or decreased air movement noted. Abdomen: Soft and nontender. Nondistended. No guarding. No rigidity. Bowel sounds normal in all 4 quadrants. No distention noted. No organomegaly noted. No visible injury noted. No rebound tenderness. Negative Rovsing sign. Negative obturator's sign. Negative psoas sign. Negative Lyons sign. Back: Full range of motion noted. Skin: Skin warm and dry. Normal skin color. Normal skin turgor. No rashes/lesions/lacerations noted. Extremities: No lower extremity edema. No calf tenderness is noted. Patient has weakness to right upper extremity and a limp to the right lower extremity which is baseline otherwise all other extremities exhibit normal range of motion nontender. Neuro: Oriented X 3. Patient has chronic right upper weakness and has a limp to his right leg is at baseline per caregiver at bedside. No new focal deficits noted. CN's II-XII intact bilaterally? Vascular: + radial pulses/+ 2 distal pedal pulses/+2 dorsalis pedis b/l. Normal cap refill. No cyanosis noted to upper extremity nails and lower extremity toes nails. 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 Caregiver at bedside reports that they recently instructed to decrease his 20 mg lisinopril daily to 10 the 20 mg tablets in half and put them in a separate container and this morning the patient was trying to be ?helpful?, therefore he took the medications that were put on the side and she noticed after he took them. She reports that his medications are using a lock box although due to these medications she recently cut she did not locked him a. He did not tried to harm himself in any way he reports. He denies any SI/HI/auditory visualizations thoughts of self-injury. Caregiver reports he is at baseline. I spoke to poison Control they reported to provide supportive care due to can have hypotension can also seek hypokalemia and bradycardia. They recommended putting him on a laboratory monitor and monitoring for at least 6-8 hours. Along with obtaining an EKG CBC/CMP. Plan: Will obtain labs, EKG placed on a laboratory monitor provide a L of IV fluids and re-evaluate. Reevaluation(s) Reevaluation #1: - labs reviewed and all labs are within normal limits. Salicylates less than 5. Acetaminophen less than 1. Ethanol level negative. - EKG is normal sinus rhythm with a ventricular rate of [address] abnormalities no acute ischemic change are noted. Similar compared to prior EKG July 2019. - will continue to monitor his blood pressure is now 131/78. Time: 12:46 Reevaluation #2: - patient has now been monitored for 8 hours. Normal exam. Is at baseline. Blood pressure is within normal limits. Will DC home with caregiver at bedside and instructions to make sure she locks up all of his medications and that he should not take any medications unlss his caregiver gives it to him. Patient with caregiver at bedside understand agree this plan. Time: 18:15 [facility] - Overdose Medical Records Attestation: I reviewed the patient's medical records. Lab Data Attestation: I reviewed the patient's lab results. Result diagrams: 12/05/21 11:52 12/05/21 11:52 Labs: Lab Results 12/05/21 12/05/21 Range/Units 11:52 11:52 WBC 7.8 (4.8-10.8) X10*3/uL RBC 4.55 L (4.60-5.80) X10*6/uL Hgb 14.0 (14.0-18.0) g/dl Hct 40.8 L (42.0-52.0) % MCV 89.7 (80.0-98.0) fL MCH 30.8 (27.0-33.0) pg MCHC 34.3 (31.0-36.0) g/dl RDW 11.7 (11.0-16.0) % Plt Count 203 (160-400) X10*3/uL MPV 8.8 L (9.4-12.4) fL Immature Gran % (Auto) 0.3 (0.0-0.4) % Neut % (Auto) 66.5 (45-73) % Lymph % (Auto) 18.9 L (20-40) % Meade % (Auto) 11.0 (2-11) % Eos % (Auto) 3.0 (0-4) % Baso % (Auto) 0.3 (0-2) % Lymph # (Auto) 1.5 (1.2-4.9) X10*3/uL Meade # (Auto) 0.9 (0.1-1.2) X10*3/uL Eos # (Auto) 0.2 (0.0-0.4) X10*3/uL Baso # (Auto) 0.0 (0.0-0.2) X10*3/uL Abs Immat Gran (auto) 0.02 (0.00-0.03) X10*3/uL Absolute Neuts (auto) 5.2 (2.0-8.3) x10*3/uL Absolute Nucleated RBC 0.000 (0.0-0.012) X10*3/uL Nucleated RBC % (auto) 0.0 (0.0-0.2) /100WBC Sodium 138 (135-145) mmol/L Potassium 4.2 (3.3-5.1) mmol/L Chloride 104 (96-108) mmol/L Carbon Dioxide 25 (22-29) mmol/L Anion Gap 13 (12-20) BUN 15 (9-16) mg/dL Creatinine 1.14 (0.5-1.4) mg/dL Estim Creat Clear Calc 97.4 Estimated GFR > 60 Random Glucose 92 (60-115) mg/dL Calcium 9.8 (8.4-10.2) mg/dL Magnesium 2.1 (1.6-2.6) mg/dL Total Bilirubin 0.2 (0.0-1.0) mg/dL AST 16 (5-37) U/L ALT 22 (0-40) U/L Alkaline Phosphatase 89 (39-117) U/L Total Protein 6.7 (6.5-8.0) g/dL Albumin 4.6 (3.5-5.0) g/dL Salicylates < 5.0 L (15-30) mg/dL Acetaminophen < 1 (<30) mcg/mL Ethyl Alcohol < 10 mg/dL ECG Data Attestation: I personally reviewed and interpreted this ECG as follows: ECG interpretation date: 12/05/21 ECG interpretation time: 11:28 Interpretation: Normal sinus rhythm with ventricular rate of [address] abnormalities no acute ischemic change are noted and similar compared to prior EKG 07/16/2019. Critical Care Time Critical Care Time Critical Care Time: Yes Total Critical Care Time: 60 Attestation: I personally attest to this time spent taking care of the patient Discharge Plan Discharge Clinical Impression: Accidental overdose Patient Disposition: Home, Self-Care Instructions: Adult Overdose (ED) Additional Instructions: Please do not take any medications and unless your caregiver gives them to you. Your caregiver should make sure that your medications are in a secure lock box. Return if any new or worsening symptoms. Follow-up with your primary care provider. Referrals: Walt Curtis PA [Primary Care Provider] - 2 days
[2021-12-05 11:59] LABS: MANUAL DIFF FLAG NO
[2021-12-05 12:01] LABS: Basophils Percent Auto 0.3 % (0-2); Eosinophils Absolute Auto 0.2 X10*3/uL (0.0-0.4); Hematocrit 40.8 % (42.0-52.0); Imm Gran Abs Auto 0.02 X10*3/uL (0.00-0.03); Imm Gran Pct Auto 0.3 % (0.0-0.4); Lymphocytes Absolute Auto 1.5 X10*3/uL (1.2-4.9); Lymphocytes Percent Auto 18.9 % (20-40); Mean Corpuscular HGB Conc 34.3 g/dl (31.0-36.0); Mean Corpuscular Hemoglobin 30.8 pg (27.0-33.0); Mean Corpuscular Volume 89.7 fL (80.0-98.0); Mean Platelet Volume 8.8 fL (9.4-12.4); Monocytes Absolute Auto 0.9 X10*3/uL (0.1-1.2); Neutrophils Absolute Auto 5.2 x10*3/uL (2.0-8.3); Neutrophils Percent Auto 66.5 % (45-73); Platelet Count 203 X10*3/uL (160-400); Red Blood Count 4.55 X10*6/uL (4.60-5.80); Red Cell Distribution Width 11.7 % (11.0-16.0); White Blood Count 7.8 X10*3/uL (4.8-10.8)
[2021-12-05] MEDS: 0.9 % Sodium Chloride 1,000 ML 999 ML IVCONT (12:06)
[2021-12-05 12:16] LABS: Acetaminophen LAB < 1 mcg/mL (<30); Alanine Aminotransferase 22 U/L (0-40); Albumin Level 4.6 g/dL (3.5-5.0); Alkaline Phosphatase 89 U/L (39-117); Anion Gap 13 (12-20); Aspartate Amino Transferase 16 U/L (5-37); Bilirubin Total 0.2 mg/dL (0.0-1.0); Blood Urea Nitrogen 15 mg/dL (9-16); Calcium 9.8 mg/dL (8.4-10.2); Carbon Dioxide 25 mmol/L (22-29); Chloride 104 mmol/L (96-108); Creatinine Clr Calc Pharmacy 97.4; Estimated Glomerular Filt Rate > 60; Ethanol < 10 mg/dL; Glucose Random 92 mg/dL (60-115); Magnesium 2.1 mg/dL (1.6-2.6); Potassium 4.2 mmol/L (3.3-5.1); Salicylate < 5.0 mg/dL (15-30); Sodium 138 mmol/L (135-145); Total Protein 6.7 g/dL (6.5-8.0)
[2021-12-05 12:20] VITALS: BP 131/78; PULSE 67; RESP 16; TEMP 36.8; O2SAT 100
[2021-12-05 14:28] VITALS: BP 98/65; PULSE 69; RESP 18; TEMP 36.7; O2SAT 99
[2021-12-05] MEDS: 0.9 % Sodium Chloride 1,000 ML 250 ML IVCONT (15:01)
[2021-12-05 18:17] VITALS: BP 110/77; PULSE 65; RESP 18; O2SAT 99
== END 2021-12-05 18:29 | disposition home or self-care (01) ==
PROVIDERS: Physician Assistant Medical; Emergency Provider Emergency Medicine; PCP Physician Assistant Medical
DX: T46.4X1A Poisoning by angiotensin-converting-enzyme inhibitors, accidental (unintentional), initial encounter (principal); Y92.019 Unspecified place in single-family (private) house as the place of occurrence of the external cause; Z87.820 Personal history of traumatic brain injury
CPT/HCPCS: 36415; 80053; 80143; 80179; 82077; 83735; 85025; 93005; 96360; 96361; 99284